=== PATIENT | male | born 1950 | race Two or more races ===

== ENCOUNTER 2018-03-23 09:32 | Emergency (ER) | payer MEDICARE, OTHER ==
[~2018-03-23] VITALS: Ht 152.4 cm; Wt 86.4 kg
[2018-03-23] MEDS ORDERED: METF-960 PO (10:23)
[2018-03-23] MEDS ORDERED: OMEP20 PO (10:23)
[2018-03-23] MEDS ORDERED: RANI50VI4 IM (10:23)
[2018-03-23] MEDS ORDERED: CIP250 PO (10:23)
[2018-03-23] MEDS ORDERED: CAPT25TA3 PO (10:24)
[2018-03-23] MEDS ORDERED: ATEN50TA PO (10:24)
[2018-03-23 10:29] LABS: GLUCOSE,POINT OF CARE 221 MG/DL (70-110)
[2018-03-23 11:32] LABS: BASOPHILS % (AUTO) 0.9 % (0.0-2.0); EOSINOPHILS % (AUTO) 3.5 % (1.0-6.0); HEMATOCRIT 49.4 % (41-53); HEMOGLOBIN 16.8 g/dL (13.5-17.5); LYMPHOCYTES # (AUTO) 1.4 K/uL (1.0-4.8); LYMPHOCYTES % (AUTO) 11.6 % (22.0-44.0); MEAN CORPUSCULAR HEMOGLOBIN 29.4 pg (26.0-34.0); MEAN CORPUSCULAR HGB CONC 34.1 G/dL (31.0-37.0); MEAN CORPUSCULAR VOLUME 86 fL (80-100); MONOCYTES # (AUTO) 1.1 K/uL (0.1-1.0); NEUTROPHILS # (AUTO) 8.8 K/uL (1.8-7.7); PLATELET COUNT (AUTO) 283 K/uL (150-450); RED BLOOD CELL COUNT(AUTO) 5.73 MIL/uL (4.50-5.90); RED CELL DISTRIBUTION WIDTH 15.4 % (11.5-14.5)
[2018-03-23 11:42] LABS: ANION GAP 6 mmol/L (8-16); CALCIUM, TOTAL 9.7 mg/dL (8.8-10.5); CARBON DIOXIDE 28 mmol/L (22-29); CHLORIDE 97 mmol/L (98-107); CREATININE 1.06 mg/dL (0.60-1.30); GLOMERULAR FILTR. RATE CALC > 60 mL/min (>60); GLUCOSE,RANDOM 183 mg/dL (70-110); POTASSIUM 4.7 mmol/L (3.5-5.1); SODIUM SERUM 131 mmol/L (136-145); UREA NITROGEN, BLOOD 12 mg/dL (7-18)
[2018-03-23 11:48] LABS: ALANINE AMINOTRANSFERASE 91 U/L (12-78); ALKALINE PHOSPHATASE 258 U/L (46-116); ASPARTATE AMINOTRANSFERASE 68 U/L (15-37); BILIRUBIN,TOTAL 9.8 mg/dL (0.1-1.0); LIPASE 206 U/L (73-393)
[2018-03-23 15:19] LABS: APPEARANCE,URINE CLEAR (CLEAR); BILIRUBIN,URINE PRELIM. POSITIVE (NEGATIVE); GLUCOSE, URINE (UA) NEGATIVE (NEGATIVE); KETONES,URINE NEGATIVE (NEGATIVE); LEUKOCYTE ESTERASE ,URINE NEGATIVE (NEGATIVE); NITRATE,URINE NEGATIVE (NEGATIVE); OCCULT BLOOD,URINE NEGATIVE (NEGATIVE); PROTEIN,URINE NEGATIVE (NEGATIVE); UROBILINOGEN,URINE 0.2 mg/dL (<=1.0)
[2018-03-23 15:25] LABS: PROTHROMBIN TIME 10.7 SEC (9.4-11.6)
[2018-03-23 15:29] LABS: LACTIC ACID 1.7 mmol/L (0.4-2.0)
[2018-03-23 15:38] LABS: ACETAMINOPHEN < 2 mcg/mL (10-30)
[2018-03-23 15:45] LABS: B-TYPE NATRIURETIC PEPTIDE 181 pg/mL (0-100)
[2018-03-23] MEDS ORDERED: CefTRIAXone 1 GM/DEXTROSE 50 ML IV ONE (18:00)
[2018-03-23] MEDS ORDERED: PIPERACILLIN/TAZO 3.375 GM/D5W 50 ML IV ONE (18:00)
[2018-03-23 18:47] VITALS: BP 131/72
== END 2018-03-23 19:20 | disposition short-term general hospital (02) ==
LOC: EMS 09:35
DX: K80.00 Calculus of gallbladder with acute cholecystitis without obstruction (principal); I10 Essential (primary) hypertension; E11.9 Type 2 diabetes mellitus without complications; Z79.84 Long term (current) use of oral hypoglycemic drugs; Z79.899 Other long term (current) drug therapy
CPT/HCPCS: 36415; 71045; 76700; 80053; 80074; 81003; 82140; 82962; 83605; 83690; 83880; 84484; 85025; 85610; 85730; 87040; 93005; 96365; 96368; 99285; G0480; G0481; J0696; J2543